=== PATIENT | female | born 1940 | race Caucasian/White ===

== ENCOUNTER 2024-05-23 17:53 | Emergency (ER) | payer OTHER, SELFPAY ==
[2024-05-23 17:57] VITALS: BP 146/84
[2024-05-23 18:00] VITALS: BP 172/91
[2024-05-23 18:01] VITALS: BP 146/84; BMI 24.4
[2024-05-23 19:00] VITALS: BP 119/44
--- NOTE | 2024-05-23 19:17 | ED.GENMED ---
History of Present Illness
General
Chief Complaint: Fall
Time Seen by Provider: 05/23/24 18:51
History of Present Illness
History of Present Illness:
83-year-old female presents to the emergency department for evaluation of right-sided mid back pain as well as a headache after a fall. States she got up off the couch' simply went down'. Denies loss of consciousness. She was able to get herself
up off the ground. Denies any difficulty breathing or hemoptysis but pain in the back is pleuritic in nature. No anterior abdominal pain or hematuria. Does not take any anticoagulants.
Past History
Past History
ED Past Medical History: NIDDM, Valvular disease, Hypothyroidism and Other (Rheumatoid arthritis, migraines)
Social History
Tobacco: Non-smoker
Alcohol: None
Review of Systems
Review of Systems
Allergies reviewed?: Yes
All Other Systems: ROS reviewed and negative except as documented in HPI and ROS
Phy Exam
Physical Exam
Physical Exam:
GEN: Well appearing, NAD, WDWN
HEENT: Small parietal hematoma with no crepitus, pupils equal round and reactive to light, oral mucosa moist, no scleral icterus
Cardiac: Regular rate and rhythm
Lung: No respiratory distress, no tachypnea, lungs clear to auscultation with no diminished breath sounds
MSK: No gross deformity or injuries. No midline cervical or thoracic spine tenderness. There is tenderness to the right posterior 10th through 12th ribs with no crepitus or ecchymosis. No pelvic tenderness bilaterally
Skin: Good color, no pallor or jaundice, no rashes
Neuro: AO x3, moves all extremities freely
Psych: Calm, cooperative
Course
Orders/Labs/Results
Orders:
Orders
05/23/24 19:16
CT Chest W/o Iv Contrast Urgent
Comment:
Reason For Exam: fall, R lower thoracic back injury
CT Head W/o Iv Contrast Urgent
Comment:
Reason For Exam: fall, head injury
Vital Signs
Initial and Last Documented VS:
Initial Vital Signs
BP
146/84
05/23/24 17:57
Last Documented Vital Signs
Temp Pulse Resp BP Pulse Ox
98.0 F 56 16 121/59 95
05/23/24 18:01 05/23/24 20:49 05/23/24 20:49 05/23/24 20:49 05/23/24 20:15
MDM/Problems Addressed
MDM/Problems Addressed:
CT of the head and CT of the chest showed no evidence for acute injuries. Patient discharged in stable condition
*Critical Care Note
Total Time (30-74mins, 75-104mins- exclusive of procedures): Not Applicable
ED Attending Note
-
Portions of this chart may have been created with voice recognition software.� Occasional wrong word or��sound alike� substitutions may have occurred due to the inherent limitations of voice recognition software.
Discharge Plan
Departure
Patient Disposition: Home (Routine Discharge)
Date of Disposition: 05/23/24
Time of Disposition: 20:04
Patient with high blood pressure during this ER visit?: No
Discharge Problem:
Fall, CHI (closed head injury), Contusion of right back wall of thorax
Prescriptions:
No Action
levothyroxine 75 MCG tablet
75 mcg PO DAILY
Patient Comments:
pt takes in the middle of the night
citalopram 20 MG tablet
40 mg PO DAILY
Patient Comments:
brand name specific
Referrals:
Benito Chamberlain MD [Family Provider] -
Interventions
Interventions:
*Risk Screen - Suicide Last Done: 05/23/24 18:01
*General Assessment Last Done: 05/23/24 18:01
*Neglect/Abuse Screening Last Done: 05/23/24 18:01
ED- Fall Risk Assessment Last Done: 05/23/24 20:38
*ED COVID-19 Vaccine History Last Done: 05/23/24 18:19
*Nursing Disposition Last Done: 05/23/24 21:37
ED-Musculoskeletal Assessment Last Done: 05/23/24 18:20
ED- Neurological Assessment Last Done: 05/23/24 18:20
ED-Skin Assessment Last Done: 05/23/24 18:20
Discharge Date and Time
Discharge Date/Time: 05/23/24 21:38
Print Language: TANZANIAN
[2024-05-23 20:00] VITALS: BP 105/85
[2024-05-23 20:49] VITALS: BP 121/59
== END 2024-05-23 21:38 | disposition home or self-care (01) ==
LOC: EMR 17:53
PROVIDERS: EMERGENCY PHYSICIAN Student in an Organized Health Care Education/Training Program; FAMILY PHYSICIAN Internal Medicine
DX: S09.90XA Unspecified injury of head, initial encounter (principal); S20.221A Contusion of right back wall of thorax, initial encounter; W19.XXXA Unspecified fall, initial encounter; E11.9 Type 2 diabetes mellitus without complications; I38 Endocarditis, valve unspecified; E03.9 Hypothyroidism, unspecified; M06.9 Rheumatoid arthritis, unspecified
CPT/HCPCS: 99284; 70450; 71250

== ENCOUNTER 2024-08-04 18:06 | Emergency (ER) | payer OTHER, SELFPAY ==
[2024-08-04 18:10] VITALS: BP 156/71
[2024-08-04 18:33] LABS: % Basophils 0.9 % (0-2); % Eosinophils 4.5 % (0-6); % Immature Granulocytes 0.3 % (0-0.5); % Lymphocytes 22.3 % (20.5-51.1); % Monocytes 7.4 % (1.7-9.3); % Neutrophils 64.6 % (42.2-75.2); Absolute Basophils 0.1 10^3/uL (0-0.2); Absolute Eosinophils 0.3 10^3/uL (0-0.7); Absolute Lymphocytes 1.5 10^3/uL (1.2-3.4); Absolute Monocytes 0.5 10^3/uL (0.1-0.6); Absolute Neutrophils 4.4 10^3/uL (1.4-6.5); Hematocrit 44.6 % (37.0-47.0); Hemoglobin 14.9 g/dL (12.0-16.0); Mean Corp Hgb Conc. 33.4 g/dL (33.0-37.0); Mean Corpuscular Hgb 30.5 pg (27.0-31.0); Mean Corpuscular Volume 91.4 fL (81.0-99.0); Mean Platelet Volume 9.7 fL (7.4-10.4); Nucleated Red Blood Cells % 0 %; Platelet Count 238 10^3/uL (130-400); Red Blood Cell Count 4.88 10^6/uL (4.20-5.40); Red Cell Dist. Width 12.7 % (11.5-14.5); White Blood Cell Count 6.9 10^3/uL (4.8-10.8)
[2024-08-04 18:45] LABS: ALT (SGPT) 12 U/L (0-35); AST (SGOT) 16 U/L (14-36); Albumin 4.3 g/dl (3.5-5.0); Alkaline Phosphatase 66 U/L (38-126); Blood Urea Nitrogen 10 mg/dl (7-17); Carbon Dioxide 28 mmol/L (22-30); Chloride 101 mmol/L (98-107); Glucose 207 mg/dl (70-99); Potassium 4.4 mmol/L (3.5-5.1); Sodium 136 mmol/L (135-145); Total Bilirubin 0.8 mg/dl (0.2-1.3); Total Protein 7.1 g/dl (6.3-8.2); eGFR > 60.00
[2024-08-04 18:53] LABS: COVID-19 Antigen Negative (Negative)
[2024-08-04 21:52] VITALS: BP 100/59
--- NOTE | 2024-08-04 22:31 | ED.GENMED ---
History of Present Illness
General
Chief Complaint: Cough
Time Seen by Provider: 08/04/24 21:20
History of Present Illness
History of Present Illness:
84-year-old female with history of legal blindness and diabetes presenting to the emergency department for 3 days of cough. Patient reports productive cough, thick mucus. Patient's primary concern is pneumonia, reports that she had a very
complicated pneumonia about a year ago. Denies chest pain or difficulty breathing. Denies abdominal pain or GI symptoms. Denies known sick contacts. Denies any fever. She has been using home remedies and OTC medications with mild relief.
Denies additional acute medical complaints
Past History
Past History
ED Past Medical History: NIDDM, Valvular disease, Hypothyroidism and Other (Rheumatoid arthritis, migraines)
Social History
Tobacco: Non-smoker
Alcohol: None
Phy Exam
Physical Exam
Physical Exam:
General: Well-appearing, no clinical signs of dehydration, nontoxic and in no acute distress
HEENT: protecting airway
Neck: appears supple
CV: Normal heart rate, regular rhythm
Resp: No accessory muscle use, no increased work of breathing, lungs clear to auscultation bilaterally
Abd: No distention
Extremities: No deformities, no swelling
Neuro: alert, no focal neurologic deficit
: deferred
Rectal: deferred
Psych: Normal affect
Skin: Intact
Course
Orders/Labs/Results
Orders:
Orders
08/04/24 18:15
CR Chest - 2 Views Urgent
Comment:
Reason For Exam: productive cough x 2 days
08/04/24 18:22
COVID-19 Antigen Urgent
Source: Nasal Swab
Complete Blood Count/With Diff Urgent
Comprehensive Metabolic Panel Urgent
Influenza A+B Rapid Molecular Urgent
PRADIP Source: Nasal Swab
Specimen Description:
Abnormal Lab Results
08/04/24
18:22
Glucose 207 H mg/dl
(70-99)
08/04/24 18:22
08/04/24 18:22
Vital Signs
Initial and Last Documented VS:
Initial Vital Signs
Temp Pulse Resp BP Pulse Ox
97.7 F 64 18 156/71 97
08/04/24 18:10 08/04/24 18:10 08/04/24 18:10 08/04/24 18:10 08/04/24 18:10
Last Documented Vital Signs
Temp Pulse Resp BP Pulse Ox
97.7 F 65 18 136/61 97
08/04/24 18:10 08/04/24 22:40 08/04/24 22:40 08/04/24 22:40 08/04/24 21:52
MDM/Problems Addressed
MDM/Problems Addressed:
84-year-old female with history of legal blindness and diabetes presenting for productive cough. Vital signs on arrival are normal.
On exam patient is resting comfortably, no acute distress. No respiratory distress. Lungs are clear to auscultation with no focal abnormal lung sounds. Symptom presentation and physical exam appears most consistent with pneumonia versus viral
syndrome. Patient had laboratory analysis, viral swabs, chest x-ray prior to my assessment. Labs unremarkable, no leukocytosis. Patient is negative for flu and COVID. Chest x-ray without obvious infiltrate or pneumonia. At this time suspect
viral source of symptoms. Patient has concern given her prior history of pneumonia. In discussion with patient and son at bedside, will prescribe antibiotic, to be taken in the next few days if symptoms or not improving or worsening at any point.
Otherwise feel stable for discharge with continued outpatient supportive therapy. Return precaution discussed and patient verbalized understanding
*Critical Care Note
Total Time (30-74mins, 75-104mins- exclusive of procedures): Not Applicable
ED Attending Note
-
Portions of this chart may have been created with voice recognition software.� Occasional wrong word or��sound alike� substitutions may have occurred due to the inherent limitations of voice recognition software.
Discharge Plan
Departure
Patient Disposition: Home (Routine Discharge)
Date of Disposition: 08/04/24
Time of Disposition: 22:29
Patient with high blood pressure during this ER visit?: No
Condition: Good
Discharge Problem:
Productive cough
Instructions: Cough, Adult (DC)
Prescriptions:
New
doxycycline hyclate 100 mg capsule
100 mg PO BID Qty: 14 0RF
No Action
levothyroxine 75 MCG tablet
75 mcg PO DAILY
Patient Comments:
pt takes in the middle of the night
citalopram 20 MG tablet
40 mg PO DAILY
Patient Comments:
brand name specific
Referrals:
Benito Chamberlain MD [Family Provider] -
Activity Restrictions/Additional Instructions:
You were seen in the emergency department for cough
You were found to have a normal chest x-ray, blood work, viral swabs.
Please follow-up closely with your primary care physician.
Return to the emergency department for any worsening of your symptoms, or any development of chest pain, difficulty breathing, abdominal pain with persistent vomiting and inability to tolerate food or liquid by mouth (concern for dehydration),
weakness, headache or confusion, fever greater than 100.4, or any additional symptoms that are concerning to you.
Thank you for choosing [facility].
Interventions
Interventions:
*Risk Screen - Suicide Last Done: 08/04/24 18:10
*General Assessment Last Done: 08/04/24 18:10
*Neglect/Abuse Screening Last Done: 08/04/24 18:10
*Nursing Disposition Last Done: 08/04/24 22:41
ED- Pulmonary Assessment Last Done: 08/04/24 21:49
Discharge Date and Time
Discharge Date/Time: 08/04/24 22:41
Print Language: TELUGU
[2024-08-04 22:40] VITALS: BP 136/61
== END 2024-08-04 22:41 | disposition home or self-care (01) ==
LOC: EMR 18:06
PROVIDERS: Emergency Medicine; EMERGENCY PHYSICIAN Student in an Organized Health Care Education/Training Program; FAMILY PHYSICIAN Internal Medicine
DX: R05.9 Cough, unspecified (principal); E11.9 Type 2 diabetes mellitus without complications; E03.9 Hypothyroidism, unspecified; H54.8 Legal blindness, as defined in USA; M06.9 Rheumatoid arthritis, unspecified; Z87.01 Personal history of pneumonia (recurrent)
CPT/HCPCS: 99284; 71046; 80053; 85025; 87502; 87811

== ENCOUNTER → 2025-01-02 14:24 | Outpatient (REF) | payer OTHER, SELFPAY | LOC: HWRAD 14:24 | PROVIDERS: ATTENDING PHYSICIAN Hospitalist | DX: M25.511 Pain in right shoulder (principal) | CPT/HCPCS: 73030 ==

== ENCOUNTER → 2025-05-11 12:26 | Outpatient (REF) | payer OTHER, SELFPAY | LOC: RCS 12:26 | PROVIDERS: ATTENDING PHYSICIAN Internal Medicine; FAMILY PHYSICIAN Hospitalist | DX: R00.1 Bradycardia, unspecified (principal); R29.6 Repeated falls | CPT/HCPCS: 93225; 93226; 93306 ==

== ENCOUNTER 2025-06-15 09:48 | Day surgery (SDC) | payer OTHER, SELFPAY ==
[2025-06-12 13:21] VITALS: BMI 24.9
[2025-06-12 13:57] LABS: Hematocrit 44.6 % (37.0-47.0); Hemoglobin 14.9 g/dL (12.0-16.0); Mean Corp Hgb Conc. 33.4 g/dL (33.0-37.0); Mean Corpuscular Volume 91.4 fL (81.0-99.0); Nucleated Red Blood Cells % 0 %; Platelet Count 269 10^3/uL (130-400); Red Cell Dist. Width 12.3 % (11.5-14.5)
[2025-06-12 14:05] LABS: ALT (SGPT) 12 U/L (0-35); AST (SGOT) 14 U/L (14-36); Albumin 4.3 g/dl (3.5-5.0); Alkaline Phosphatase 71 U/L (38-126); Blood Urea Nitrogen 13 mg/dl (7-17); Calcium 9.0 mg/dl (8.4-10.2); Carbon Dioxide 24 mmol/L (22-30); Chloride 100 mmol/L (98-107); Estimated Creatinine Clearance 54 ml/min; Glucose 282 mg/dl (70-99); Potassium 4.3 mmol/L (3.5-5.1); Sodium 135 mmol/L (135-145); Total Protein 7.2 g/dl (6.3-8.2); eGFR > 60.00
[2025-06-12 14:35] LABS: Glycohemoglobin (HgbA1c) 7.8 % (4.0-5.9)
[2025-06-15] VITALS (12 sets, daily range): BP systolic 119–137; BP diastolic 47–59; BMI 25.6
[2025-06-15] MEDS: NSS 500 IV (10:40)
[2025-06-15 10:55] LABS: Glucose - Point of Care 264 mg/dl (70-99)
[2025-06-15] MEDS: VANCOCIN 200 IV (12:12)
[2025-06-15] MEDS: ASPIRIN 325 MG PO (14:48)
--- NOTE | 2025-06-15 15:02 | W.PN.UPDATE ---
Update Note
Progress Note Update
Pt seen post pacemaker implant. Left ACW w/aquacel dressing CDI, no ht/bleeding. Post EKG APaced 60s. Post CXR w/stable lead position, no pneumothorax. Activity limitations reviewed w/pt, daughter. Incision check in 1 week at [facility]. Home later today
if device site remains stable.
[2025-06-15 16:32] LABS: Glucose - Point of Care 249 mg/dl (70-99)
== END 2025-06-15 18:00 | disposition home or self-care (01) ==
LOC: CATH 09:48
PROVIDERS: ATTENDING PHYSICIAN Internal Medicine Cardiovascular Disease; FAMILY PHYSICIAN Hospitalist; OTHER PHYSICIAN Internal Medicine
DX: I49.5 Sick sinus syndrome (principal); I45.2 Bifascicular block; Z88.0 Allergy status to penicillin; E78.2 Mixed hyperlipidemia; Z88.5 Allergy status to narcotic agent; Z88.2 Allergy status to sulfonamides; Z88.1 Allergy status to other antibiotic agents; Z79.82 Long term (current) use of aspirin; Z79.4 Long term (current) use of insulin; Z79.85 Long-term (current) use of injectable non-insulin antidiabetic drugs; E11.9 Type 2 diabetes mellitus without complications; F32.A Depression, unspecified
CPT/HCPCS: 33208; 36415; 71045; 80053; 82962; 83036; 85025; 93005; C1785; C1887; C1898